=== PATIENT | female | born 1970 | race Caucasian/White ===

== ENCOUNTER 2018-08-04 16:56 | Emergency (ER) | payer BC ==
[2018-08-04] MEDS ORDERED: Aspirin 81 MG Tab.Chew PO ONE (17:00)
[2018-08-04] MEDS ORDERED: Sodium Chloride 0.9% 2.5 ML Syringe FLUSH PRN (17:00)
[2018-08-04] MEDS ORDERED: Sodium Chloride 0.9% 10 ML Syringe FLUSH PRN (17:00)
[2018-08-04] MEDS ORDERED: Sodium Chloride 0.9% 1,000 ML IV ONE (17:07)
[2018-08-04] MEDS ORDERED: LORazepam 2 MG/ML SDV IVPUSH ONE (17:07)
--- NOTE | 2018-08-04 17:14 | EDM.PDOC ---
ED HPI GENERAL MEDICAL PROBLEM - General Chief Complaint: Chest Pain Stated Complaint: STOMACH PAIN Time Seen by Provider: 08/04/18 16:59 Source of Information: Reports: Patient History Limitations: Reports: No Limitations - History of Present Illness INITIAL COMMENTS - FREE TEXT/NARRATIVE: HISTORY AND PHYSICAL: History of present illness: Patient is a 48-year-old female who is brought to the emergency room by her daughter with concerns of abdominal pain, headache, pain radiating to the left neck and down her arm, and anxiety. She reports that she experienced sudden onset of low abdominal pain and cramping. States she went to the bathroom and had a bowel movement. Shortly after she had intense headache and pain that radiates down her left neck into the left arm. She did not pass out or blackout. She continues to have the abdominal pain and developed anxiety. She denies any fever, chills, chest pain, shortness of breath or cough. Denies any nausea, vomiting, diarrhea or constipation. Denies any blood in her stools, dysuria or hematuria. She states prior to this event she had felt well and had been eating and drinking appropriately. Patient reports that she has had a total hysterectomy, appendectomy and cholecystectomy. Has no history of any GI or conditions. She denies any drug or alcohol abuse. Review of systems: As per history of present illness and below otherwise all systems reviewed and negative. Past medical history: As per history of present illness and as reviewed below otherwise noncontributory. Surgical history: As per history of present illness and as reviewed below otherwise noncontributory. Social history: See social history for further information Family history: As per history of present illness and as reviewed below otherwise noncontributory. Physical exam: General: Well-developed and well-nourished 48-year-old female. Anxious appearing , unable to get comfortable on the cot and in mild distress. HEENT: Atraumatic, normocephalic, pupils equal and reactive bilaterally, negative for conjunctival pallor or scleral icterus, mucous membranes moist, TMs normal bilaterally, throat clear, neck supple, nontender, trachea midline. No drooling or trismus noted. No meningeal signs. No hot potato voice noted. Lungs: Clear to auscultation, breath sounds equal bilaterally, chest nontender. Heart: S1S2, regular rate and rhythm without overt murmur Abdomen: Soft, nondistended, nontender. Negative for masses or hepatosplenomegaly. Negative for costovertebral tenderness. Pelvis: Stable nontender. Genitourinary: Deferred. Rectal: Deferred. Skin: Intact, warm, dry. No lesions or rashes noted. Extremities: Atraumatic, negative for cords or calf pain. Neurovascular unremarkable. Neuro: Awake, alert, oriented. Cranial nerves II through XII unremarkable. Cerebellum unremarkable. Motor and sensory unremarkable throughout. Exam nonfocal. Notes: D.Dimer is elevated; CTA was explained to patient and daughter at the bedside. She declines wanting at CTA of chest. She is aware of the risks versus benefits of this. CT abdomen and pelvis shows: 1. No specific identified cause of the patient`s acute abdominal pain. 2. Changes of prior cholecystectomy. Mild prominence of the extrahepatic bile duct likely relates to postcholecystectomy reservoir effect. 3. Bilateral adrenal gland lesions. These are incompletely characterized. Consider CT adrenal study with washout determination for further evaluation. 4. Colonic diverticulosis without acute diverticulitis. 5. Prior hysterectomy. This information was shared with the patient. She states she does feel improved. Her vital signs are stable. She continues decline the CTA. We'll give her Bentyl, tramadol and Zofran for home use. We discussed the importance of follow-up with primary care or the general surgeon. Supportive care measures were reviewed and discussed. Voices understanding and is agreeable to plan of care. Denies any further questions or concerns at this time. Diagnostics: CBC, CMP, troponin, UA, urine drug screen, TSH, d-dimer, chest x-ray, EKG Therapeutics: IV fluid, Ativan Prescription: Bentyl, tramadol, Zofran Impression: Abdominal pain Plan: 1. Clear liquids and advance to a bland diet as tolerated. Continue this for the next 24-48 hours. He may advance her diet to a regular diet thereafter. 2. Please take your medications as directed and as needed. 3. Follow-up with your primary care provider or the general surgeon as we discussed. Return to the ED as needed and as discussed. Definitive disposition and diagnosis as appropriate pending reevaluation and review of above. Abdominal Pain Score (Numeric/FACES): 9 - Related Data Allergies Allergy/AdvReac Type Severity Reaction Status Date / Time No Known Allergies Allergy Verified 08/04/18 17:06 Home Meds: Home Meds . [No Known Home Meds] 08/04/18 [History] Past Medical History - Past Health History Medical/Surgical History: Denies Medical/Surgical History STEWARD/STEWARDESS BANQUET History: Reports: - Past Surgical History Female Surgical History: Reports: Hysterectomy ED ROS GENERAL - Review of Systems Review Of Systems: ROS reveals no pertinent complaints other than HPI. ED EXAM, GENERAL - Physical Exam Exam: See Below (See dictation) Course - Vital Signs Last Recorded V/S: Last Vital Signs Temp 96.8 F 08/04/18 17:07 Pulse 98 08/04/18 18:30 Resp 16 08/04/18 18:30 BP 114/69 08/04/18 18:30 Pulse Ox 98 08/04/18 18:30 - Orders/Labs/Meds Orders: Active Orders 24 hr Category Date Time Status EKG Documentation Completion [RC] STAT Care 08/04/18 17:00 Active Sodium Chloride 0.9% [Saline Flush] Med 08/04/18 17:00 Active 10 ml FLUSH ASDIRECTED PRN Sodium Chloride 0.9% [Saline Flush] Med 08/04/18 17:00 Active 2.5 ml FLUSH ASDIRECTED PRN Saline Lock Insert [OM.PC] Stat Oth 08/04/18 17:00 Ordered Medication Orders Sodium Chloride (Saline Flush) 10 ml FLUSH ASDIRECTED PRN PRN Reason: Keep Vein Open Last Admin: 08/04/18 17:29 Dose: 10 ml Sodium Chloride (Saline Flush) 2.5 ml FLUSH ASDIRECTED PRN PRN Reason: Keep Vein Open Last Admin: 08/04/18 17:29 Dose: 2.5 ml Labs: Laboratory Tests 08/04/18 08/04/18 08/04/18 Range/Units 17:20 17:22 17:22 WBC 7.83 (4.0-11.0) K/uL RBC 4.82 (4.30-5.90) M/uL Hgb 15.1 (12.0-16.0) g/dL Hct 43.6 (36.0-46.0) % MCV 90.5 (80.0-98.0) fL MCH 31.3 (27.0-32.0) pg MCHC 34.6 (31.0-37.0) g/dL RDW Std Deviation 41.4 (28.0-62.0) fl RDW Coeff of Donnell 13 (11.0-15.0) % Plt Count 310 (150-400) K/uL MPV 9.70 (7.40-12.00) fL Neut % (Auto) 49.0 (48.0-80.0) % Lymph % (Auto) 39.5 (16.0-40.0) % [place] % (Auto) 10.2 (0.0-15.0) % Eos % (Auto) 0.9 (0.0-7.0) % Baso % (Auto) 0.4 (0.0-1.5) % Neut # (Auto) 3.8 (1.4-5.7) K/uL Lymph # (Auto) 3.1 H (0.6-2.4) K/uL [place] # (Auto) 0.8 (0.0-0.8) K/uL Eos # (Auto) 0.1 (0.0-0.7) K/uL Baso # (Auto) 0.0 (0.0-0.1) K/uL Nucleated RBC % 0.0 /100WBC Nucleated RBCs # 0 K/uL D-Dimer, Quantitative (0.0-0.50) mg/L FEU Sodium 139 (136-145) mmol/L Potassium 3.7 (3.5-5.1) mmol/L Chloride 105 (98-107) mmol/L Carbon Dioxide 22.5 (21.0-32.0) mmol/L BUN 15 (7.0-18.0) mg/dL Creatinine 0.8 (0.6-1.0) mg/dL Est Cr Clr Drug Dosing 79.63 mL/min Estimated GFR (MDRD) > 60.0 ml/min Glucose 109 H (74-106) mg/dL Calcium 9.6 (8.5-10.1) mg/dL Total Bilirubin 0.3 (0.2-1.0) mg/dL AST 13 L (15-37) IU/L ALT 20 (14-63) IU/L Alkaline Phosphatase 66 (46-116) U/L Troponin I < 0.050 (0.000-0.056) ng/mL Total Protein 7.2 (6.4-8.2) g/dL Albumin 3.8 (3.4-5.0) g/dL Globulin 3.4 (2.6-4.0) g/dL Albumin/Globulin Ratio 1.1 (0.9-1.6) TSH 3rd Generation (0.36-3.74) uIU/mL Urine Color Urine Appearance Urine pH (5.0-8.0) Ur Specific [place] (1.001-1.035) Urine Protein (NEGATIVE) mg/dL Urine Glucose (UA) (NEGATIVE) mg/dL Urine Ketones (NEGATIVE) mg/dL Urine Occult Blood (NEGATIVE) Urine Nitrite (NEGATIVE) Urine Bilirubin (NEGATIVE) Urine Urobilinogen (<2.0) EU/dL Ur Leukocyte Esterase (NEGATIVE) Urine RBC (0-2/HPF) Urine WBC (0-5/HPF) Ur Epithelial Cells (NONE-FEW) Urine Bacteria (NEGATIVE) Urine Opiates Screen NEGATIVE (NEGATIVE) Ur Oxycodone Screen NEGATIVE (NEGATIVE) Urine Methadone Screen NEGATIVE (NEGATIVE) Ur Barbiturates Screen NEGATIVE (NEGATIVE) Ur Phencyclidine Scrn NEGATIVE (NEGATIVE) Ur Amphetamine Screen NEGATIVE (NEGATIVE) U Methamphetamines Scrn NEGATIVE (NEGATIVE) U Benzodiazepines Scrn NEGATIVE (NEGATIVE) U Cocaine Metab Screen NEGATIVE (NEGATIVE) U Marijuana (THC) Screen NEGATIVE (NEGATIVE) 08/04/18 08/04/18 08/04/18 Range/Units 17:22 17:22 17:27 WBC (4.0-11.0) K/uL RBC (4.30-5.90) M/uL Hgb (12.0-16.0) g/dL Hct (36.0-46.0) % MCV (80.0-98.0) fL MCH (27.0-32.0) pg MCHC (31.0-37.0) g/dL RDW Std Deviation (28.0-62.0) fl RDW Coeff of Donnell (11.0-15.0) % Plt Count (150-400) K/uL MPV (7.40-12.00) fL Neut % (Auto) (48.0-80.0) % Lymph % (Auto) (16.0-40.0) % [place] % (Auto) (0.0-15.0) % Eos % (Auto) (0.0-7.0) % Baso % (Auto) (0.0-1.5) % Neut # (Auto) (1.4-5.7) K/uL Lymph # (Auto) (0.6-2.4) K/uL [place] # (Auto) (0.0-0.8) K/uL Eos # (Auto) (0.0-0.7) K/uL Baso # (Auto) (0.0-0.1) K/uL Nucleated RBC % /100WBC Nucleated RBCs # K/uL D-Dimer, Quantitative 0.53 H (0.0-0.50) mg/L FEU Sodium (136-145) mmol/L Potassium (3.5-5.1) mmol/L Chloride (98-107) mmol/L Carbon Dioxide (21.0-32.0) mmol/L BUN (7.0-18.0) mg/dL Creatinine (0.6-1.0) mg/dL Est Cr Clr Drug Dosing mL/min Estimated GFR (MDRD) ml/min Glucose (74-106) mg/dL Calcium (8.5-10.1) mg/dL Total Bilirubin (0.2-1.0) mg/dL AST (15-37) IU/L ALT (14-63) IU/L Alkaline Phosphatase (46-116) U/L Troponin I (0.000-0.056) ng/mL Total Protein (6.4-8.2) g/dL Albumin (3.4-5.0) g/dL Globulin (2.6-4.0) g/dL Albumin/Globulin Ratio (0.9-1.6) TSH 3rd Generation 0.83 (0.36-3.74) uIU/mL Urine Color YELLOW Urine Appearance CLEAR Urine pH 6.0 (5.0-8.0) Ur Specific [place] 1.025 (1.001-1.035) Urine Protein NEGATIVE (NEGATIVE) mg/dL Urine Glucose (UA) NEGATIVE (NEGATIVE) mg/dL Urine Ketones NEGATIVE (NEGATIVE) mg/dL Urine Occult Blood TRACE-INTACT H (NEGATIVE) Urine Nitrite NEGATIVE (NEGATIVE) Urine Bilirubin NEGATIVE (NEGATIVE) Urine Urobilinogen 0.2 (<2.0) EU/dL Ur Leukocyte Esterase NEGATIVE (NEGATIVE) Urine RBC 0-2 (0-2/HPF) Urine WBC 0-2 (0-5/HPF) Ur Epithelial Cells FEW (NONE-FEW) Urine Bacteria FEW (NEGATIVE) Urine Opiates Screen (NEGATIVE) Ur Oxycodone Screen (NEGATIVE) Urine Methadone Screen (NEGATIVE) Ur Barbiturates Screen (NEGATIVE) Ur Phencyclidine Scrn (NEGATIVE) Ur Amphetamine Screen (NEGATIVE) U Methamphetamines Scrn (NEGATIVE) U Benzodiazepines Scrn (NEGATIVE) U Cocaine Metab Screen (NEGATIVE) U Marijuana (THC) Screen (NEGATIVE) Meds: Medications Generic Name Dose Route Start Last Admin Trade Name Freq PRN Reason Stop Dose Admin Sodium Chloride 10 ml 08/04/18 17:00 08/04/18 17:29 Saline Flush FLUSH 10 ml ASDIRECTED PRN Administration Keep Vein Open Sodium Chloride 2.5 ml 08/04/18 17:00 08/04/18 17:29 Saline Flush FLUSH 2.5 ml ASDIRECTED PRN Administration Keep Vein Open Discontinued Medications Generic Name Dose Route Start Last Admin Trade Name Freq PRN Reason Stop Dose Admin Aspirin 324 mg 08/04/18 17:00 Aspirin PO 08/04/18 17:01 ONETIME ONE Dicyclomine HCl 10 mg 08/04/18 19:37 Bentyl PO 08/04/18 19:38 ONETIME ONE Sodium Chloride 1,000 mls @ 999 mls/hr 08/04/18 17:07 08/04/18 17:26 Normal Saline IV 08/04/18 18:07 999 mls/hr STAT ONE Administration Iopamidol 80 ml 08/04/18 18:48 08/04/18 18:48 Isovue Multipack-370 (76%) IVPUSH 08/04/18 18:49 80 ml ONETIME STA Administration Lorazepam 1 mg 08/04/18 17:07 08/04/18 17:29 Ativan IVPUSH 08/04/18 17:08 1 mg ONETIME ONE Administration Ondansetron HCl 4 mg 08/04/18 18:53 08/04/18 18:57 Zofran IVPUSH 08/04/18 18:54 4 mg ONETIME ONE Administration Tramadol HCl 100 mg 08/04/18 19:37 Ultram PO 08/04/18 19:38 ONETIME ONE Departure - Departure Time of Disposition: 19:41 Disposition: Home, Self-Care 01 Clinical Impression: Abdominal pain Qualifiers: Abdominal location: upper abdomen, unspecified Qualified Code(s): R10.10 - Upper abdominal pain, unspecified - Discharge Information Instructions: Abdominal Pain, Adult, [id number] Referrals: PCP,Unknown [Primary Care Provider] - Forms: ED Department Discharge Additional Instructions: The following information is given to patients seen in the emergency department who are being discharged to home. This information is to outline your options for follow-up care. We provide all patients seen in our emergency department with a follow-up referral. The need for follow-up, as well as the timing and circumstances, are variable depending upon the specifics of your emergency department visit. If you don't have a primary care physician on staff, we will provide you with a referral. We always advise you to contact your personal physician following an emergency department visit to inform them of the circumstance of the visit and for follow-up with them and/or the need for any referrals to a consulting specialist. The emergency department will also refer you to a specialist when appropriate. This referral assures that you have the opportunity for follow-up care with a specialist. All of these measure are taken in an effort to provide you with optimal care, which includes your follow-up. Under all circumstances we always encourage you to contact your private physician who remains a resource for coordinating your care. When calling for follow-up care, please make the office aware that this follow-up is from your recent emergency room visit. If for any reason you are refused follow-up, please contact the [facility] Emergency Department at and asked to speak to the emergency department charge nurse. [facility] [address] [place] [id number] [address] [address] [facility] - General Surgery Professional Building [address] [place] [address], [address] [place] [address] 1. Clear liquids and advance to a bland diet as tolerated. Continue this for the next 24-48 hours. He may advance her diet to a regular diet thereafter. 2. Please take your medications as directed and as needed. 3. Follow-up with your primary care provider or the general surgeon as we discussed. Return to the ED as needed and as discussed. - My Orders Last 24 Hours: My Active Orders 08/04/18 17:00 EKG Documentation Completion [RC] STAT Sodium Chloride 0.9% [Saline Flush] 10 ml FLUSH ASDIRECTED PRN Sodium Chloride 0.9% [Saline Flush] 2.5 ml FLUSH ASDIRECTED PRN Saline Lock Insert [OM.PC] Stat - Assessment/Plan Last 24 Hours: My Active Orders 08/04/18 17:00 EKG Documentation Completion [RC] STAT Sodium Chloride 0.9% [Saline Flush] 10 ml FLUSH ASDIRECTED PRN Sodium Chloride 0.9% [Saline Flush] 2.5 ml FLUSH ASDIRECTED PRN Saline Lock Insert [OM.PC] Stat
--- NOTE | 2018-08-04 17:43 | CR ---
INDICATION: Chest pain. TECHNIQUE: One-view portable chest. FINDINGS: Heart and mediastinum are normal in size. Pulmonary vessels are normal. Lungs are clear. No pleural fluid. No acute bony abnormality. IMPRESSION: No acute chest disease. Dictated by Denise Myers MD @ Aug 04 2018 5:42PM Signed by Dr. Denise Myers @ Aug 04 2018 5:43PM
[2018-08-04 18:06] LABS: CHLORIDE,CL 105 mmol/L (98-107); SODIUM,NA 139 mmol/L (136-145)
[2018-08-04] MEDS ORDERED: Iopamidol 755 MG/ML 500 ML Multipack Bottle IVPUSH STA (18:48)
[2018-08-04] MEDS ORDERED: Ondansetron 4 MG/2 ML SDV IVPUSH ONE (18:53)
--- NOTE | 2018-08-04 19:07 | CT ---
HISTORY: Abdominal pain. TECHNIQUE: Intravenous contrast enhanced CT of the abdomen and pelvis. 80 mL of Isovue-370 intravenous contrast administered. COMPARISON: No prior. FINDINGS: No focal liver parenchymal abnormality. Patient is status post cholecystectomy. Mild prominence the extrahepatic bile duct likely relates to postcholecystectomy reservoir effect. The spleen is normal. There is no focal pancreatic abnormality. There are bilateral adrenal gland lesions. On the left, there is an approximately 4.6 x 3.3 cm adrenal gland mass. On the right, there is an approximately 1.7 x 1.9 cm adrenal gland nodule. These measure above than 10 Hounsfield units and are therefore nonspecific adrenal lesions. Symmetric nephrograms. There is no renal mass. No hydronephrosis. Urinary bladder is not optimally evaluated by CT but appears grossly unremarkable. Patient is status post hysterectomy. - Stomach and GE junction are not optimally evaluated by CT but appear grossly unremarkable. There is no small bowel obstruction. Mild colonic diverticulosis without acute diverticulitis. No fluid collection or free air. No abdominal aortic aneurysm. No technically enlarged lymph nodes. Small fat containing umbilical hernia. - Mild degenerative changes of the spine. No acute fractures. - Mild subpleural atelectasis within the lungs. IMPRESSION: 1. No specific identified cause of the patient`s acute abdominal pain. 2. Changes of prior cholecystectomy. Mild prominence of the extrahepatic bile duct likely relates to postcholecystectomy reservoir effect. 3. Bilateral adrenal gland lesions. These are incompletely characterized. Consider CT adrenal study with washout determination for further evaluation. 4. Colonic diverticulosis without acute diverticulitis. 5. Prior hysterectomy. Dictated by Ady East MD @ 08/04/2018 7:07:14 PM Please note that all CT scans at this facility use dose modulation, iterative reconstruction, and/or weight-based dosing when appropriate to reduce radiation dose to as low as reasonably achievable. Dictated by: Ady East MD @ 08/04/2018 19:07:19 (Electronically Signed)
[2018-08-04] MEDS ORDERED: Dicyclomine 10 MG Cap PO ONE (19:37)
[2018-08-04] MEDS ORDERED: traMADol 50 MG Tab PO ONE ×2 (19:37→19:43)
== END 2018-08-04 20:05 | disposition home or self-care (01) ==
LOC: MW.ED 16:56
DX: R10.10 Upper abdominal pain, unspecified (principal); R10.30 Lower abdominal pain, unspecified; R51 Headache; Z90.49 Acquired absence of other specified parts of digestive tract; Z90.710 Acquired absence of both cervix and uterus
CPT/HCPCS: 36415; 71045; 74177; 80053; 80305; 81001; 84443; 84484; 85025; 85379; 87804; 93005; 96361; 96374; 96375; 99284; A9270; J2060; J2405; J7040; Q9967; 99283